=== PATIENT | female | born 1960 | race Two or more races ===

== ENCOUNTER 2017-04-11 23:53 | Emergency (ER) | payer OTHER ==
[~2017-04-11] VITALS: Ht 162.6 cm; Wt 111.5 kg
[2017-04-12 00:09] VITALS: Ht 162.6 cm; Wt 111.5 kg
[2017-04-12] MEDS ORDERED: KETOROLAC 30 MG INJ IV STA (02:16)
[2017-04-12] MEDS ORDERED: CLINDAMYCIN 600 MG/D5W (PMX) 50 ML IVPB SCH (02:30)
--- NOTE | 2017-04-12 03:15 | ERD ---
ER Documentation Chief Complaint Date/Time DATE: 04/12/17 TIME: 03:08 Chief Complaint Right buttock pain for 3 days HPI 57-year-old female presents here in emergency department for complaints of right buttock swelling and redness to 3 days after she injected herself vitamin B12. Patient's complaining of pain throbbing pain, 8/10 scale, is worse upon touching the area. Patient denies any fever or chills. Patient also wants her right ear checked. There is any infection. Patient denies any right ear pain. ROS All systems reviewed and are negative except as per history of present illness. Medications Home Meds Active Scripts Clindamycin Hcl* (Clindamycin Hcl*) 300 Mg Capsule, 300 MG PO TID for 10 Days, CAP Prov:DEB GU NP 04/12/17 Hydrocodone/Acetaminophen ([place] 5-325 Tablet) 1 Each Tablet, 1 TAB PO Q6H Y for SEVERE PAIN LEVEL 7-10, #20 TAB Prov:DEB GU NP 04/12/17 Ibuprofen* (Motrin*) 600 Mg Tab, 600 MG PO Q6H Y for PAIN AND OR ELEVATED TEMP, #30 TAB Prov:DEB GU NP 04/12/17 Reported Medications [none] Unknown Strength No Conflict Check 04/12/17 Allergies Allergies: Coded Allergies: No Known Allergy (Unverified , 04/12/17) PMhx/Soc Medical and Surgical Hx: pt denies Medical Hx History of Surgery: Yes (appendectomy) Anesthesia Reaction: No Hx Alcohol Use: No Hx Substance Use: No Hx Tobacco Use: No Smoking Status: Never smoker FmHx Family History: No coronary disease, No diabetes, No other Physical Exam Vitals Vital Signs Date Time Temp Pulse Resp B/P Pulse Ox O2 Delivery O2 Flow Rate FiO2 04/12/17 00:09 98.2 79 20 124/76 99 Physical Exam GENERAL: The patient is well developed and appropriate for usual state of health, in no apparent distress. CHEST: Clear to auscultation bilaterally. There are no rales, wheezes or rhonchi. HEART: Regular rate and rhythm. No murmurs, clicks, rubs or gallops. No S3 or S4. ABDOMEN: Soft, nontender and nondistended. Good bowel sounds. No rebound or guarding. No gross peritonitis. No gross organomegaly or masses. No Etienne sign or McBurney point tenderness. BACK: No midline or flank tenderness. EXTREMITIES: Equal pulses bilaterally. There is no peripheral clubbing, cyanosis or edema. No focal swelling or erythema. Full range of motion. Grossly neurovascularly intact. NEURO: Alert and oriented. Cranial nerves 2-12 intact. Motor strength in all 4 extremities with 5/5 strength. Sensation grossly intact. Normal speech and gait. SKIN: There is a 10 cm diameter right buttock erythema and induration noted, tender on palpation, no fluctuance noted, warm to touch. There is no apparent ecchymosis or petechia. The skin is warm and dry. HEMATOLOGIC AND LYMPHATIC: There is no evidence of excessive bruising or lymphedema. No gross cervical, axillary, or inguinal lymphadenopathy. Results 24 hrs Current Medications Medications (Trade) Dose Ordered Sig/Ivelisse Route PRN Reason Start Time Stop Time Status Last Admin Dose Admin Clindamycin HCl/ Dextrose (Cleocin 600 Mg/ D5W (Pmx)) 50 ml @ 50 mls/hr ONCE IVPB 04/12/17 02:30 04/12/17 03:29 04/12/17 02:54 Ketorolac Tromethamine (Toradol) 30 mg ONCE STAT IV 04/12/17 02:16 04/12/17 02:17 DC 04/12/17 02:54 IV clindamycin, IV Toradol was given here in emergency department, tolerated medication well. Procedures/MDM Medical decision making: Patient has right buttock redness surrounding most likely is consistent with cellulitis, no fluctuance noted at this time, incision and drainage not indicated this time. No symptoms of sepsis at this time. Patient is stable. Patient was given IV clindamycin here in emergency department. Patient was given clindamycin, [place] for severe pain ibuprofen for mild to moderate pain, is advised to return in 48 hours for reevaluation of symptoms. Patient was advised to return to emergency department for any worsening symptoms. Disposition: Home. Stable. Departure Diagnosis: Primary Impression: Cellulitis Site of cellulitis: buttock Qualified Code: L03.317 - Cellulitis of buttock Condition: Stable Patient Instructions: Cellulitis Additional Instructions: recheck in 2 days, take meds as prescribed, apply warm compress on affected area DEB GU NP Apr 12, 2017 03:15
[2017-04-12] MEDS ORDERED: CLIN-73 PO (03:20)
[2017-04-12] MEDS ORDERED: HYDR-906 PO (03:20)
[2017-04-12] MEDS ORDERED: IBUP-1542 PO (03:20)
[2017-04-21] MEDS ORDERED: SULF1TAB31 PO (06:27)
== END 2017-04-12 03:31 | disposition home or self-care (01) ==
LOC: FTE 23:53
DX: L03.317 Cellulitis of buttock (principal)
CPT/HCPCS: 96374; 96375; J1885

== ENCOUNTER 2017-04-14 05:47 | Emergency (ER) | payer OTHER ==
[~2017-04-14] VITALS: Ht 167.6 cm; Wt 109.1 kg
[~2017-04-14 05:47] MED LIST: CLIN-73 PO; HYDR-906 PO; IBUP-1542 PO
[2017-04-14 06:02] VITALS: Ht 167.6 cm; Wt 109.1 kg
[2017-04-14] MEDS ORDERED: LIDOCAINE 1% (MDV) 20 ML INJ SC ONE (07:00)
[2017-04-14] MEDS ORDERED: IBUP-1542 PO (07:37)
--- NOTE | 2017-04-14 08:10 | ERD ---
ER Documentation Chief Complaint Date/Time DATE: 04/14/17 TIME: 08:05 Chief Complaint WOUND RE CHECK ON LOWER BACK HPI 57-year-old female with present ED for recheck of the cellulitis on her right buttock. Cellulitis developed after she injected herself vitamin B12. She was seen here 2 days ago, was given prescription of clindamycin. Patient had been taking the antibiotics, but states that the cellulitis is being more painful. Denies fever or chills. Denies wound drainage. ROS All systems reviewed and are negative except as per history of present illness. Medications Home Meds Active Scripts Ibuprofen* (Motrin*) 600 Mg Tab, 600 MG PO Q6H Y for PAIN AND OR ELEVATED TEMP, #30 TAB Prov:HO GUTIERREZ NP 04/14/17 Clindamycin Hcl* (Clindamycin Hcl*) 300 Mg Capsule, 300 MG PO TID for 10 Days, CAP Prov:DEB GU NP 04/12/17 Hydrocodone/Acetaminophen ([place] 5-325 Tablet) 1 Each Tablet, 1 TAB PO Q6H Y for SEVERE PAIN LEVEL 7-10, #20 TAB Prov:DEB GU NP 04/12/17 Ibuprofen* (Motrin*) 600 Mg Tab, 600 MG PO Q6H Y for PAIN AND OR ELEVATED TEMP, #30 TAB Prov:DEB GU NP 04/12/17 Reported Medications [none] Unknown Strength No Conflict Check 04/12/17 Allergies Allergies: Coded Allergies: No Known Allergy (Unverified , 04/14/17) PMhx/Soc Medical and Surgical Hx: pt denies Medical Hx History of Surgery: No Anesthesia Reaction: No Hx Neurological Disorder: No Hx Respiratory Disorders: No Hx Cardiac Disorders: No Hx Miscellaneous Medical Probl: No Hx Alcohol Use: No Hx Substance Use: No Hx Tobacco Use: No Smoking Status: Never smoker Physical Exam Vitals Vital Signs Date Time Temp Pulse Resp B/P Pulse Ox O2 Delivery O2 Flow Rate FiO2 04/14/17 06:02 97.0 81 18 113/64 99 Physical Exam General: Well-developed, well-nourished, conscious and coherent, in no distress Skin: Warm and dry without rash, good texture and turgor. A large, 20-30 cm sized area of erythema and induration on the right buttock, no fluctuance. Head: Normocephalic without evidence of trauma Eyes: Sclera and conjunctivae normal; pupils equal, round, and reactive to light; extraocular movements are intact Chest: Normal AP diameter. Good expansion without retractions. Nontender. Lungs are clear to auscultate bilaterally with good tidal volume Heart: Regular rate and rhythm. No murmur, rub, or gallops heard Extremities: Full range of motion. Good strength bilaterally. No clubbing, cyanosis, or edema. Peripheral pulses are intact. Sensation intact Neuro: Alert and oriented 4, GCS 15. Cranial nerves grossly intact. Motor and sensory exams nonfocal. Moves all extremities. Speech clear. Gait normal Results 24 hrs Current Medications Medications (Trade) Dose Ordered Sig/Ivelisse Route PRN Reason Start Time Stop Time Status Last Admin Dose Admin Lidocaine (Xylocaine 1% (Mdv) 20 ml) 20 ml ONCE ONCE SC 04/14/17 07:00 04/14/17 07:01 DC Procedures/MDM Procedure note: Incision and Drainage Verbal consent obtained for incision and drainage of patient's abscess. The area was prepped with Betadine. Lidocaine 1% was infiltrated for local anesthesia. After appropriate anesthesia, incision was made using #11 blade. Copious amount of purulent discharge was drained from the abscess. The abscess was probed for loculation. It was then irrigated with 60 ml of NS solution. Iodoform 1/4" packing tape was inserted into the abscess. The wound was then cleaned and dressed. Patient tolerated procedure well. Medical decision-making: Well-appearing 57-year-old female presented ED with abscess and cellulitis. A large and deep abscess was incised and drained. Patient is advised to continue taking clindamycin until finished, and return to eating 2 days for wound check and dressing change. I doubt necrotizing fasciitis. Patient appears well, stable for discharge and outpatient management. Medical decision making shared with patient and family. Education provided to patient and family. Patient and family expressed understanding of the plan. Medications on discharge: Ibuprofen. Follow-up: Primary care provider in 2-3 days or return to ED if worse. Disclaimer: Inadvertent spelling and grammatical errors are likely due to EHR/ dictation software use and do not reflect on the overall quality of patient care. Also, please note that the electronic time recorded on this note does not necessarily reflect the actual time of the patient encounter. Departure Diagnosis: Primary Impression: Abscess Condition: Good Patient Instructions: Abscess, Incision And Drainage Additional Instructions: Return to this facility in 2 DAYS for a follow-up exam.Return sooner if your condition worsens. HO GUTIERREZ NP Apr 14, 2017 08:10
== END 2017-04-14 07:49 | disposition home or self-care (01) ==
LOC: FTE 05:47
DX: L02.31 Cutaneous abscess of buttock (principal); R40.2412 Glasgow coma scale score 13-15, at arrival to emergency department

== ENCOUNTER 2017-04-17 05:15 | Emergency (ER) | payer OTHER ==
[~2017-04-17] VITALS: Ht 172.7 cm; Wt 111.5 kg
[2017-04-17 05:18] VITALS: Ht 172.7 cm; Wt 111.5 kg
--- NOTE | 2017-04-17 05:38 | ERD ---
ER Documentation Chief Complaint Date/Time DATE: 04/17/17 TIME: 05:36 Chief Complaint Right buttock wound recheck HPI 57-year-old female presents here in emergency department for complaints of her right buttock abscess wound recheck. Patient had an incision and drainage done 4 days ago, patient is taking antibiotics as prescribed. Patient continues to have pain throbbing pain 6/10 scale, is worse upon touching the area. It is draining some purulent discharge. Patient denies any fever or chills. ROS All systems reviewed and are negative except as per history of present illness. Medications Home Meds Active Scripts Ibuprofen* (Motrin*) 600 Mg Tab, 600 MG PO Q6H Y for PAIN AND OR ELEVATED TEMP, #30 TAB Prov:HO GUTIERREZ NP 04/14/17 Clindamycin Hcl* (Clindamycin Hcl*) 300 Mg Capsule, 300 MG PO TID for 10 Days, CAP Prov:DEB GU NP 04/12/17 Hydrocodone/Acetaminophen ([place] 5-325 Tablet) 1 Each Tablet, 1 TAB PO Q6H Y for SEVERE PAIN LEVEL 7-10, #20 TAB Prov:DEB GU NP 04/12/17 Ibuprofen* (Motrin*) 600 Mg Tab, 600 MG PO Q6H Y for PAIN AND OR ELEVATED TEMP, #30 TAB Prov:DEB GU NP 04/12/17 Reported Medications [none] Unknown Strength No Conflict Check 04/12/17 Allergies Allergies: Coded Allergies: No Known Allergy (Unverified , 04/17/17) PMhx/Soc History of Surgery: Yes (appendectomy) Anesthesia Reaction: No Hx Neurological Disorder: No Hx Respiratory Disorders: No Hx Cardiac Disorders: No Hx Psychiatric Problems: No Hx Miscellaneous Medical Probl: No Hx Alcohol Use: No Hx Substance Use: No Hx Tobacco Use: No FmHx Family History: No coronary disease, No diabetes, No other Physical Exam Vitals Vital Signs Date Time Temp Pulse Resp B/P Pulse Ox O2 Delivery O2 Flow Rate FiO2 04/17/17 05:18 98.3 76 18 135/69 99 Physical Exam GENERAL: The patient is well developed and appropriate for usual state of health, in no apparent distress. CHEST: Clear to auscultation bilaterally. There are no rales, wheezes or rhonchi. HEART: Regular rate and rhythm. No murmurs, clicks, rubs or gallops. No S3 or S4. ABDOMEN: Soft, nontender and nondistended. Good bowel sounds. No rebound or guarding. No gross peritonitis. No gross organomegaly or masses. No Etienne sign or McBurney point tenderness. BACK: No midline or flank tenderness. EXTREMITIES: Equal pulses bilaterally. There is no peripheral clubbing, cyanosis or edema. No focal swelling or erythema. Full range of motion. Grossly neurovascularly intact. NEURO: Alert and oriented. Cranial nerves 2-12 intact. Motor strength in all 4 extremities with 5/5 strength. Sensation grossly intact. Normal speech and gait. SKIN: Noted open wound on the right buttock area, iodoform is in place, draining purulent discharge, mild erythema surrounding the area, mild tenderness on palpation, no fluctuance noted. There is no apparent ecchymosis or petechia. The skin is warm and dry. HEMATOLOGIC AND LYMPHATIC: There is no evidence of excessive bruising or lymphedema. No gross cervical, axillary, or inguinal lymphadenopathy. Procedures/MDM Procedure note: After patient's verbal consent, the wound was cleaned with diluted Betadine, after cleaning the wound, the old packing was removed, it was replaced with a new iodoform dressing. Patient tolerated procedure well. Medical decision making: Patient's abscess wound is healing well, dressing was changed, patient was advised to continue taking antibiotics. No symptoms of any sepsis. Patient was advised to follow-up in 4 days for reevaluation of symptoms , changing of dressing. Patient was advised to return to emergency department for worsening symptoms. Disposition: Home. Stable. Departure Diagnosis: Primary Impression: Encounter for wound re-check Additional Impression: Abscess Condition: Stable Patient Instructions: Wound Packing, Abscess, Incision And Drainage Referrals: KIMBERLI LAM (PCP) Additional Instructions: return in 4 days for recheck , continue antibiotics DEB GU NP Apr 17, 2017 05:38
[2017-04-21] MEDS ORDERED: SULF1TAB31 PO (06:27)
== END 2017-04-17 06:00 | disposition home or self-care (01) ==
LOC: FTE 05:15
DX: Z48.01 Encounter for change or removal of surgical wound dressing (principal); L02.31 Cutaneous abscess of buttock
CPT/HCPCS: 99281

== ENCOUNTER 2017-04-21 05:30 | Emergency (ER) | END 2017-04-21 06:34 | disposition home or self-care (01) | DX: Z48.01 Encounter for change or removal of surgical wound dressing (principal) ==

== ENCOUNTER 2017-04-23 05:43 | Emergency (ER) | END 2017-04-23 08:31 | disposition home or self-care (01) | DX: Z48.01 Encounter for change or removal of surgical wound dressing (principal); L02.31 Cutaneous abscess of buttock ==

== ENCOUNTER 2017-04-27 05:46 | Emergency (ER) | END 2017-04-27 06:43 | disposition home or self-care (01) | DX: Z48.01 Encounter for change or removal of surgical wound dressing (principal); L02.31 Cutaneous abscess of buttock ==

== ENCOUNTER 2017-04-30 05:11 | Emergency (ER) | payer OTHER ==
[~2017-04-30] VITALS: Ht 167.6 cm; Wt 111.5 kg
[~2017-04-30 05:11] MED LIST changes: +SULF1TAB31 PO
[2017-04-30 05:19] VITALS: Ht 167.6 cm; Wt 111.5 kg
[2017-04-30] MEDS ORDERED: HC30CR25 TOP (07:11)
--- NOTE | 2017-04-30 10:21 | ERD ---
ER Documentation Chief Complaint Date/Time DATE: 04/30/17 TIME: 10:18 Chief Complaint need wound check/re-evaluation HPI 57-year-old female patient with no significant past medical history presents to the ED for a wound check of the abscess that was drained and states that she has been applying Band-Aids which has been making itchy. She has been scratching her right buttocks due to the itchiness from the Band-Aids. Patient denies any fever, chills, abdominal pain, nausea, vomiting,purulent discharge, bloody stools. ROS All systems reviewed and are negative except as per history of present illness. Medications Home Meds Active Scripts Hydrocortisone* Topical (Hydrocortisone* Topical) 2.5%-28.3 Gm Cream..g., 1 APPLIC TOP BID, #1 TUB Prov:LAINA MARIE PA-C 04/30/17 Sulfamethoxazole/Trimethoprim* (Bactrim Ds* Tablet) 1 Each Tablet, 1 TAB PO BID , #14 TAB Prov:HO GUTIERREZ NP 04/21/17 Ibuprofen* (Motrin*) 600 Mg Tab, 600 MG PO Q6H Y for PAIN AND OR ELEVATED TEMP, #30 TAB Prov:HO GUTIERREZ NP 04/14/17 Clindamycin Hcl* (Clindamycin Hcl*) 300 Mg Capsule, 300 MG PO TID for 10 Days, CAP Prov:DEB GU NP 04/12/17 Hydrocodone/Acetaminophen ([place] 5-325 Tablet) 1 Each Tablet, 1 TAB PO Q6H Y for SEVERE PAIN LEVEL 7-10, #20 TAB Prov:DEB GU NP 04/12/17 Ibuprofen* (Motrin*) 600 Mg Tab, 600 MG PO Q6H Y for PAIN AND OR ELEVATED TEMP, #30 TAB Prov:DEB GU NP 04/12/17 Reported Medications [none] Unknown Strength No Conflict Check 04/12/17 Allergies Allergies: Coded Allergies: No Known Allergy (Unverified , 04/23/17) PMhx/Soc History of Surgery: Yes (appendectomy) Anesthesia Reaction: No Hx Neurological Disorder: No Hx Respiratory Disorders: No Hx Cardiac Disorders: No Hx Psychiatric Problems: No Hx Miscellaneous Medical Probl: No Hx Alcohol Use: No Hx Substance Use: No Hx Tobacco Use: No Smoking Status: Never smoker Physical Exam Vitals Vital Signs Date Time Temp Pulse Resp B/P Pulse Ox O2 Delivery O2 Flow Rate FiO2 04/30/17 05:19 97.5 78 20 121/60 98 Physical Exam Const: [id number], well-nourished. In no acute distress. Head: Atraumatic, normocephalic Eyes: Normal Conjunctiva without injection. No purulent discharge. ENT: Normal external ear, nose. Moist oropharynx without tonsillar exudates. Non -erythematous pharynx. Uvula midline. No drooling. No trismus. Neck: No cervical midline tenderness. Full range of motion. No meningismus. No cervical lymphadenopathy. No JVD. Resp: Clear to auscultation bilaterally. No wheezing, rhonchi, rales, or crackles. No accessory muscle use. No retractions. Cardio: Regular rate and rhythm. No murmurs, rubs or gallops. Abd: Soft, nontender, non distended. Normal bowel sounds. No palpable masses. No rebound tenderness. No guarding. Negative McBurney's point. Negative psoas sign. Negative obturator sign. Closed 1 cm incision on the right buttocks due to secondary intention with no fluctuance. There is induration noted with a square erythema secondary to contact dermatitis. No bleeding. No purulent discharge. Skin: No petechiae or rashes Back: No midline tenderness. No CVA tenderness. Ext: No cyanosis, or edema. Neur: Awake and alert. Normal gait. Normal coordination. Psych: Normal Mood and Affect Procedures/MDM This is a 57-year-old female patient with no sniffing a past history presents the ED complaining of itchiness surrounding her abscess drainage compared to the bandage. Patient is afebrile and nontoxic-appearing. Patient has normal vital signs. Patient will be prescribed hydrocortisone. Patient likely has contact dermatitis. Low suspicion for scabies, SJS/TEN, erythema multiforme, sepsis, cellulitis, necrotizing fascitis, gangrene, deep space infection, abscess, meningococcemia or other emergent conditions. Discharge medications: Hydrocortisone cream Follow up with primary care physician in 1-2 days. Instructed patient to return to the ED sooner for any worsening symptoms. Patient's questions were answered. Patient understood and agreed with discharge plan. Patient discharged stable. Departure Diagnosis: Primary Impression: Encounter for wound re-check Condition: Stable Patient Instructions: Wound Care, Contact Dermatitis Referrals: KIMBERLI LAM (PCP) [facility] YOU HAVE RECEIVED A MEDICAL SCREENING EXAM AND THE RESULTS INDICATE THAT YOU DO NOT HAVE A CONDITION THAT REQUIRES URGENT TREATMENT IN THE EMERGENCY DEPARTMENT. FURTHER EVALUATION AND TREATMENT OF YOUR CONDITION CAN WAIT UNTIL YOU ARE SEEN IN YOUR DOCTORS OFFICE WITHIN THE NEXT 1-2 DAYS. IT IS YOUR RESPONSIBILITY TO MAKE AN APPOINTMENT FOR FOLOW-UP CARE. IF YOU HAVE A PRIMARY DOCTOR --you should call your primary doctor and schedule an appointment IF YOU DO NOT HAVE A PRIMARY DOCTOR YOU CAN CALL OUR PHYSICIAN REFERRAL HOTLINE AT IF YOU CAN NOT AFFORD TO SEE A PHYSICIAN YOU CAN CHOSE FROM THE FOLLOWING [facility] [id number] [facility] [address] [facility] [address] [facility] [address] [facility] [address] [facility] [address] [facility]. [facility] YOU HAVE RECEIVED A MEDICAL SCREENING EXAM AND THE RESULTS INDICATE THAT YOU DO NOT HAVE A CONDITION THAT REQUIRES URGENT TREATMENT IN THE EMERGENCY DEPARTMENT. FURTHER EVALUATION AND TREATMENT OF YOUR CONDITION CAN WAIT UNTIL YOU ARE SEEN IN YOUR DOCTORS OFFICE WITHIN THE NEXT 1-2 DAYS. IT IS YOUR RESPONSIBILITY TO MAKE AN APPOINTMENT FOR FOLOW-UP CARE. IF YOU HAVE A PRIMARY DOCTOR --you should call your primary doctor and schedule and appointment IF YOU DO NOT HAVE A PRIMARY DOCTOR YOU CAN CALL OUR PHYSICIAN REFERRAL HOTLINE AT . IF YOU CAN NOT AFFORD TO SEE A PHYSICIAN YOU CAN CHOSE FROM THE FOLLOWING [facility] INSTITUTIONS: [facility] [address] [place] [address] [facility] [address] [place] [address] [facility] [address] [place] [address] [facility]CIAL[facility] Additional Instructions: Call your primary care doctor TOMORROW for an appointment during the next 2-3 days.See the doctor sooner or return here if your condition worsens before your appointment time. LAINA MARIE PA-C Apr 30, 2017 10:21
== END 2017-04-30 07:15 | disposition home or self-care (01) ==
LOC: FTE 05:11
DX: L29.9 Pruritus, unspecified (principal); Z48.01 Encounter for change or removal of surgical wound dressing
CPT/HCPCS: 99283